=== PATIENT | female | born 1955 | race African-American/Black ===

== ENCOUNTER 2020-10-24 18:01 | Inpatient (IN) | payer OTHER ==
[~2020-10-24] VITALS: Ht 165.1 cm; Wt 111.5 kg
[2020-10-24] MEDS ORDERED: ALBUTEROL SULF 2.5 MG/0.5ML(0.5%) NEB SOLN NEB ONE (20:00)
[2020-10-24] MEDS ORDERED: IPRATROPIUM BROM 0.5 MG/2.5ML INH SOL NEB ONE (20:00)
[2020-10-24 21:53] LABS: Basophils # (auto) 0 10 ^3/uL (0-0.2); Basophils % (auto) 0.3 % (0.0-2.0); Eosinophils # (auto) 0 10 ^3/uL (0-0.8); Hematocrit 39.4 % (36.0-46.0); Hemoglobin 12.3 g/dL (12.2-16.2); Lymphocytes # (auto) 0.2 10 ^3/uL (0.4-5.4); Lymphocytes % (auto) 1.4 % (10.0-50.0); Mean Corpuscular Hgb Conc. 31.2 g/dL (32.0-36.0); Mean Corpuscular Volume 92.8 fL (80.0-100.0); Monocytes # (auto) 0.5 10 ^3/uL (0-1.3); Monocytes % (auto) 3.1 % (0.0-12.0); Neutrophils # (auto) 14.4 10 ^3/uL (1.6-8.6); Neutrophils % (auto) 95.2 % (37.0-80.0); Platelet Count (auto) 351 10^3/uL (140-450); Red Blood Cells 4.25 10^6/uL (4.0-5.20); White Blood Cell 15.1 10^3/uL (4.4-10.8)
[2020-10-24 22:14] LABS: Albumin 3.5 g/dL (3.4-5.0); Calcium 9.8 mg/dL (8.5-10.1); INR 0.98 (0.9-1.15); Partial Thromboplastin Time 23.5 sec (23.0-31.2)
[2020-10-24 22:19] LABS: BUN/Creatinine Ratio 28.1; Bilirubin, Total 0.2 mg/dL (0.2-1.0); Total Protein 7.8 g/dL (6.4-8.2)
[2020-10-25] MEDS ORDERED: methylPREDNISolone SOD SUCC 125 MG/2 ML VL IM ONE (01:00)
[2020-10-25] MEDS ORDERED: ENOXAPARIN SOD 100 MG/1 ML SYRINGE SC ONE (01:00)
[2020-10-25] MEDS ORDERED: MORPHINE SULF INJ 2 MG/ML SYRINGE 1ML IV PRN (07:30)
[2020-10-25] MEDS ORDERED: MORPHINE SULFATE 4 MG/ML SYR/VIAL IV PRN (07:30)
[2020-10-25] MEDS ORDERED: NITROGLYCERIN 0.4 MG SL TAB SL PRN (07:30)
[2020-10-25] MEDS ORDERED: HYDROcodone-ACET 5/325MG TAB PO PRN (07:30)
[2020-10-25] MEDS ORDERED: ACETAMINOPHEN 325 MG TAB PO PRN (07:30)
[2020-10-25] MEDS ORDERED: ONDANSETRON HCL 4 MG/2 ML VIAL IV PRN (07:30)
[2020-10-25] MEDS ORDERED: DOCUSATE SOD 100 MG CAP PO PRN (07:30)
[2020-10-25 08:54] LABS: Basophils # (auto) 0 10 ^3/uL (0-0.2); Basophils % (auto) 0.2 % (0.0-2.0); Eosinophils # (auto) 0 10 ^3/uL (0-0.8); Hematocrit 39.3 % (36.0-46.0); Hemoglobin 12.5 g/dL (12.2-16.2); Lymphocytes # (auto) 0.2 10 ^3/uL (0.4-5.4); Lymphocytes % (auto) 1.6 % (10.0-50.0); Mean Corpuscular Hemoglobin 29.5 pg (28.0-32.0); Mean Corpuscular Hgb Conc. 31.8 g/dL (32.0-36.0); Mean Corpuscular Volume 92.8 fL (80.0-100.0); Monocytes # (auto) 0.3 10 ^3/uL (0-1.3); Monocytes % (auto) 2.3 % (0.0-12.0); Neutrophils # (auto) 12.3 10 ^3/uL (1.6-8.6); Neutrophils % (auto) 95.9 % (37.0-80.0); Platelet Count (auto) 351 10^3/uL (140-450); Red Blood Cells 4.23 10^6/uL (4.0-5.20); Red Cell Distribution Width 15.3 % (11.8-14.3); White Blood Cell 12.9 10^3/uL (4.4-10.8)
[2020-10-25] MEDS ORDERED: IPRATROPIUM BROM 0.5 MG/2.5ML INH SOL ONE (09:00)
[2020-10-25 09:13] LABS: Albumin 3.6 g/dL (3.4-5.0); BUN/Creatinine Ratio 27.9; Calcium 9.2 mg/dL (8.5-10.1); Potassium 4.3 mmol/L (3.5-5.1)
[2020-10-25 09:16] LABS: Bilirubin, Total 0.2 mg/dL (0.2-1.0); Total Protein 7.7 g/dL (6.4-8.2)
[2020-10-25] MEDS: IPRATROPIUM BROM 0.5 MG/2.5ML INH SOL NEB SCH ×4 (09:20→21:48)
[2020-10-25] MEDS: FAMOTIDINE 20 MG TAB PO SCH ×2 (09:58→23:50)
[2020-10-25] MEDS: ALPRAZolam 0.25 MG TAB PO PRN ×2 (09:58→17:38)
[2020-10-25] MEDS: ASCORBIC ACID 500 MG TAB PO SCH ×2 (09:58→23:50)
[2020-10-25] MEDS: ZINC SULFATE 220mg CAP or TAB PO SCH (09:58)
[2020-10-25] MEDS: MULTIPLE VITAMIN TAB PO SCH (09:58)
[2020-10-25] MEDS ORDERED: ALBUTEROL SULF 2.5 MG/0.5ML(0.5%) NEB SOLN NEB SCH (10:00)
[2020-10-25] MEDS ORDERED: HEPARIN SODIUM (PORCINE) 5000 UNITS/ML 1ML VIAL SC SCH (10:00)
[2020-10-25 10:42] VITALS: BP 130/81
[2020-10-25] MEDS ORDERED: POTASSIUM CHLORIDE 8 MEQ TAB PO ONE (14:30)
[2020-10-25] MEDS ORDERED: FUROSEMIDE 40 MG TAB PO ONE (14:30)
[2020-10-25] MEDS ORDERED: AZITHROMYCIN 250 MG TAB PO ONE (14:30)
[2020-10-25] MEDS ORDERED: MONT4CHW9 PO (15:06)
[2020-10-25] MEDS ORDERED: PRED20TA2 PO (15:06)
[2020-10-25] MEDS ORDERED: PREG75CA PO (15:06)
[2020-10-25] MEDS ORDERED: OME20GT PO (15:06)
[2020-10-25] MEDS: methylPREDNISolone SOD SUCC 40 MG/ML VL IV SCH ×2 (15:08→23:50)
[2020-10-25] MEDS: ALBUTEROL SULF 2.5 MG/0.5ML(0.5%) NEB SOLN NEB PRN ×3 (15:10→21:48)
[2020-10-25] MEDS: SODIUM CHLOR 0.9% PF (SALINE LOCK) 10ML VIAL/SYR IV SCH (15:14)
[2020-10-25 17:00] VITALS: BP 147/85
[2020-10-25] MEDS: THROAT LOZENGES(CEPASTAT) MT PRN (17:38)
[2020-10-25 20:00] VITALS: BP 114/71
[2020-10-25 22:00] VITALS: BP 150/93
[2020-10-25] MEDS: ENOXAPARIN SOD 60 MG/0.6 ML SYRINGE SC SCH (23:50)
[2020-10-26] MEDS: IPRATROPIUM BROM 0.5 MG/2.5ML INH SOL NEB SCH ×6 (02:24→22:08)
[2020-10-26] MEDS: ALBUTEROL SULF 2.5 MG/0.5ML(0.5%) NEB SOLN NEB PRN ×5 (02:24→17:58)
[2020-10-26] MEDS: SODIUM CHLOR 0.9% PF (SALINE LOCK) 10ML VIAL/SYR IV SCH ×4 (02:25→22:29)
[2020-10-26 05:00] VITALS: BP 146/90
[2020-10-26] MEDS: methylPREDNISolone SOD SUCC 40 MG/ML VL IV SCH ×3 (06:07→22:28)
[2020-10-26] MEDS: ALPRAZolam 0.25 MG TAB PO PRN ×2 (06:08→20:06)
[2020-10-26 09:00] VITALS: BP 140/88
[2020-10-26 09:05] LABS: Basophils # (auto) 0 10 ^3/uL (0-0.2); Basophils % (auto) 0.1 % (0.0-2.0); Eosinophils # (auto) 0 10 ^3/uL (0-0.8); Hematocrit 39.4 % (36.0-46.0); Hemoglobin 12.6 g/dL (12.2-16.2); Lymphocytes # (auto) 0.4 10 ^3/uL (0.4-5.4); Lymphocytes % (auto) 4.1 % (10.0-50.0); Mean Corpuscular Hemoglobin 29.7 pg (28.0-32.0); Mean Corpuscular Hgb Conc. 32.1 g/dL (32.0-36.0); Mean Corpuscular Volume 92.7 fL (80.0-100.0); Monocytes # (auto) 0.8 10 ^3/uL (0-1.3); Monocytes % (auto) 7.6 % (0.0-12.0); Neutrophils # (auto) 9.4 10 ^3/uL (1.6-8.6); Neutrophils % (auto) 88.2 % (37.0-80.0); Nucleated Red Blood Cells % 0.1 %; Platelet Count (auto) 329 10^3/uL (140-450); Red Blood Cells 4.25 10^6/uL (4.0-5.20); Red Cell Distribution Width 15.1 % (11.8-14.3); White Blood Cell 10.6 10^3/uL (4.4-10.8)
[2020-10-26 09:31] LABS: Albumin 3.5 g/dL (3.4-5.0); Calcium 9.8 mg/dL (8.5-10.1); Potassium 3.9 mmol/L (3.5-5.1)
[2020-10-26 09:37] LABS: BUN/Creatinine Ratio 34.3; Bilirubin, Total 0.3 mg/dL (0.2-1.0); Total Protein 7.5 g/dL (6.4-8.2)
[2020-10-26] MEDS: FUROSEMIDE 20 MG TAB PO SCH (10:00)
[2020-10-26] MEDS: ZINC SULFATE 220mg CAP or TAB PO SCH (10:00)
[2020-10-26] MEDS: ENOXAPARIN SOD 60 MG/0.6 ML SYRINGE SC SCH ×2 (10:00→22:28)
[2020-10-26] MEDS: AZITHROMYCIN 250 MG TAB PO SCH (10:00)
[2020-10-26] MEDS: ASCORBIC ACID 500 MG TAB PO SCH ×2 (10:00→22:28)
[2020-10-26] MEDS: MULTIPLE VITAMIN TAB PO SCH (10:00)
[2020-10-26] MEDS: FAMOTIDINE 20 MG TAB PO SCH ×2 (10:00→22:28)
[2020-10-26] MEDS: POTASSIUM CHLORIDE 8 MEQ TAB PO SCH (10:00)
[2020-10-26 13:00] VITALS: BP 141/75
[2020-10-26 16:42] VITALS: BP 146/90
[2020-10-26 17:00] VITALS: BP 143/71
[2020-10-26] MEDS ORDERED: IPRATROPIUM BROM 0.5 MG/2.5ML INH SOL ONE (17:47)
[2020-10-26] MEDS ORDERED: ALBUTEROL SULF 2.5 MG/0.5ML(0.5%) NEB SOLN ONE (17:47)
[2020-10-26 22:00] VITALS: BP 146/83
[2020-10-27] MEDS: IPRATROPIUM BROM 0.5 MG/2.5ML INH SOL NEB SCH ×6 (02:06→22:39)
[2020-10-27 05:00] VITALS: BP 144/88
[2020-10-27 05:54] LABS: Basophils # (auto) 0 10 ^3/uL (0-0.2); Basophils % (auto) 0.1 % (0.0-2.0); Eosinophils # (auto) 0 10 ^3/uL (0-0.8); Hematocrit 40.4 % (36.0-46.0); Hemoglobin 12.8 g/dL (12.2-16.2); Lymphocytes # (auto) 0.2 10 ^3/uL (0.4-5.4); Lymphocytes % (auto) 2.1 % (10.0-50.0); Mean Corpuscular Hemoglobin 29.5 pg (28.0-32.0); Mean Corpuscular Hgb Conc. 31.8 g/dL (32.0-36.0); Mean Corpuscular Volume 92.9 fL (80.0-100.0); Monocytes # (auto) 0.1 10 ^3/uL (0-1.3); Monocytes % (auto) 1.1 % (0.0-12.0); Neutrophils # (auto) 9.9 10 ^3/uL (1.6-8.6); Neutrophils % (auto) 96.7 % (37.0-80.0); Platelet Count (auto) 330 10^3/uL (140-450); Red Blood Cells 4.35 10^6/uL (4.0-5.20); Red Cell Distribution Width 14.9 % (11.8-14.3); White Blood Cell 10.3 10^3/uL (4.4-10.8)
[2020-10-27] MEDS: methylPREDNISolone SOD SUCC 40 MG/ML VL IV SCH ×3 (06:13→21:54)
[2020-10-27] MEDS: SODIUM CHLOR 0.9% PF (SALINE LOCK) 10ML VIAL/SYR IV SCH ×3 (06:13→21:54)
[2020-10-27 06:18] LABS: BUN/Creatinine Ratio 35.6; Calcium 9.6 mg/dL (8.5-10.1); Potassium 4.3 mmol/L (3.5-5.1)
[2020-10-27] MEDS: ALBUTEROL SULF 2.5 MG/0.5ML(0.5%) NEB SOLN NEB PRN ×4 (06:38→22:40)
[2020-10-27 09:00] VITALS: BP 133/75
[2020-10-27] MEDS: MULTIPLE VITAMIN TAB PO SCH (10:17)
[2020-10-27] MEDS: ASCORBIC ACID 500 MG TAB PO SCH ×2 (10:17→21:54)
[2020-10-27] MEDS: FAMOTIDINE 20 MG TAB PO SCH ×2 (10:17→21:54)
[2020-10-27] MEDS: POTASSIUM CHLORIDE 8 MEQ TAB PO SCH (10:18)
[2020-10-27] MEDS: ZINC SULFATE 220mg CAP or TAB PO SCH (10:19)
[2020-10-27] MEDS: FUROSEMIDE 20 MG TAB PO SCH (10:19)
[2020-10-27] MEDS: AZITHROMYCIN 250 MG TAB PO SCH (10:19)
[2020-10-27] MEDS: ENOXAPARIN SOD 60 MG/0.6 ML SYRINGE SC SCH ×2 (10:19→21:54)
[2020-10-27] MEDS: ALPRAZolam 0.25 MG TAB PO PRN ×2 (10:22→20:35)
[2020-10-27] MEDS: THROAT LOZENGES(CEPASTAT) MT PRN ×2 (12:18→20:35)
[2020-10-27 16:39] VITALS: BP 140/79
[2020-10-27] MEDS: LORazepam 0.5 MG TAB PO PRN (16:45)
[2020-10-28] MEDS: ALBUTEROL SULF 2.5 MG/0.5ML(0.5%) NEB SOLN NEB PRN ×3 (01:49→14:16)
[2020-10-28] MEDS: IPRATROPIUM BROM 0.5 MG/2.5ML INH SOL NEB SCH ×4 (01:49→14:16)
[2020-10-28] MEDS: LORazepam 0.5 MG TAB PO PRN ×2 (03:40→11:13)
[2020-10-28] MEDS: THROAT LOZENGES(CEPASTAT) MT PRN (03:40)
[2020-10-28 05:00] VITALS: BP 149/92
[2020-10-28] MEDS: methylPREDNISolone SOD SUCC 40 MG/ML VL IV SCH (07:45)
[2020-10-28] MEDS: SODIUM CHLOR 0.9% PF (SALINE LOCK) 10ML VIAL/SYR IV SCH (07:45)
[2020-10-28 09:00] VITALS: BP 144/71
[2020-10-28 09:15] LABS: Basophils # (auto) 0.1 10 ^3/uL (0-0.2); Basophils % (auto) 0.6 % (0.0-2.0); Eosinophils # (auto) 0 10 ^3/uL (0-0.8); Hematocrit 42.3 % (36.0-46.0); Hemoglobin 13.5 g/dL (12.2-16.2); Lymphocytes # (auto) 0.4 10 ^3/uL (0.4-5.4); Lymphocytes % (auto) 2.7 % (10.0-50.0); Mean Corpuscular Hemoglobin 29.2 pg (28.0-32.0); Mean Corpuscular Volume 91.4 fL (80.0-100.0); Monocytes # (auto) 0.4 10 ^3/uL (0-1.3); Monocytes % (auto) 2.6 % (0.0-12.0); Neutrophils % (auto) 94.1 % (37.0-80.0); Platelet Count (auto) 374 10^3/uL (140-450); Red Blood Cells 4.63 10^6/uL (4.0-5.20); Red Cell Distribution Width 14.5 % (11.8-14.3); White Blood Cell 14.9 10^3/uL (4.4-10.8)
[2020-10-28 09:33] LABS: Potassium 4.2 mmol/L (3.5-5.1)
[2020-10-28 09:39] LABS: BUN/Creatinine Ratio 35.6; Calcium 9.7 mg/dL (8.5-10.1)
[2020-10-28] MEDS: ZINC SULFATE 220mg CAP or TAB PO SCH (11:05)
[2020-10-28] MEDS: ASCORBIC ACID 500 MG TAB PO SCH (11:06)
[2020-10-28] MEDS: AZITHROMYCIN 250 MG TAB PO SCH (11:06)
[2020-10-28] MEDS: FAMOTIDINE 20 MG TAB PO SCH (11:06)
[2020-10-28] MEDS: MULTIPLE VITAMIN TAB PO SCH (11:06)
[2020-10-28] MEDS: FUROSEMIDE 20 MG TAB PO SCH (11:06)
[2020-10-28] MEDS: POTASSIUM CHLORIDE 8 MEQ TAB PO SCH (11:07)
[2020-10-28] MEDS: ENOXAPARIN SOD 60 MG/0.6 ML SYRINGE SC SCH (11:07)
[2020-10-28 11:47] VITALS: BP 144/71
== END 2020-10-28 14:35 | disposition home or self-care (01) | DRG 280 ==
LOC: EDBD 18:01 → ER 18:01 → TELE 18:02 → TELE-WESTW 10-25 12:31
PROVIDERS: ADMIT Nurse Practitioner Family; ATTEND Internal Medicine
PROC: 5A09357 Assistance with Respiratory Ventilation, Less than 24 Consecutive Hours, Continuous Positive Airway Pressure (ICD-10-PCS; principal; 2020-10-26)
DX: I21.4 Non-ST elevation (NSTEMI) myocardial infarction (principal); J96.21 Acute and chronic respiratory failure with hypoxia; N17.0 Acute kidney failure with tubular necrosis; J45.901 Unspecified asthma with (acute) exacerbation; J44.1 Chronic obstructive pulmonary disease with (acute) exacerbation; E66.2 Morbid (severe) obesity with alveolar hypoventilation; Z68.41 Body mass index [BMI] 40.0-44.9, adult; J44.0 Chronic obstructive pulmonary disease with (acute) lower respiratory infection; D72.829 Elevated white blood cell count, unspecified; J20.9 Acute bronchitis, unspecified; N18.9 Chronic kidney disease, unspecified; E78.5 Hyperlipidemia, unspecified; I12.9 Hypertensive chronic kidney disease with stage 1 through stage 4 chronic kidney disease, or unspecified chronic kidney disease; F17.210 Nicotine dependence, cigarettes, uncomplicated; Z20.828 Contact with and (suspected) exposure to other viral communicable diseases; Z80.0 Family history of malignant neoplasm of digestive organs; Z91.040 Latex allergy status; Z79.899 Other long term (current) drug therapy
CPT/HCPCS: 36415; 36600; 71045; 71250; 80048; 80053; 82805; 83036; 83880; 84443; 84484; 85025; 85379; 85610; 85730; 87070; 87081; 87205; 93005; 94640; 94660; 96372; G0378

== ENCOUNTER 2020-11-21 13:13 | Inpatient (IN) | payer OTHER ==
[~2020-11-21] VITALS: Ht 165.1 cm; Wt 127.0 kg
[~2020-11-21 13:13] MED LIST: MONT4CHW9 PO; OME20GT PO; PRED20TA2 PO; PREG75CA PO
[2020-11-21 14:48] LABS: Basophils # (auto) 0.1 10 ^3/uL (0-0.2); Basophils % (auto) 0.7 % (0.0-2.0); Eosinophils # (auto) 0.1 10 ^3/uL (0-0.8); Eosinophils % (auto) 1.4 % (0.0-7.0); Hematocrit 35.1 % (36.0-46.0); Hemoglobin 11.6 g/dL (12.2-16.2); Lymphocytes # (auto) 0.7 10 ^3/uL (0.4-5.4); Lymphocytes % (auto) 6.2 % (10.0-50.0); Mean Corpuscular Hemoglobin 29.8 pg (28.0-32.0); Mean Corpuscular Hgb Conc. 33.1 g/dL (32.0-36.0); Monocytes # (auto) 0.8 10 ^3/uL (0-1.3); Monocytes % (auto) 7.7 % (0.0-12.0); Neutrophils # (auto) 8.8 10 ^3/uL (1.6-8.6); Nucleated Red Blood Cells % 0.2 %; Platelet Count (auto) 440 10^3/uL (140-450); Red Cell Distribution Width 15.1 % (11.8-14.3); White Blood Cell 10.5 10^3/uL (4.4-10.8)
[2020-11-21 15:02] LABS: Albumin 3.1 g/dL (3.4-5.0); BUN/Creatinine Ratio 14.9; Calcium 9.8 mg/dL (8.5-10.1); Potassium 3.2 mmol/L (3.5-5.1)
[2020-11-21 15:11] LABS: Bilirubin, Total 0.6 mg/dL (0.2-1.0); Total Protein 8.1 g/dL (6.4-8.2)
[2020-11-21 15:26] LABS: INR 1.07 (0.9-1.15); Partial Thromboplastin Time 27.9 sec (23.0-31.2)
[2020-11-21] MEDS ORDERED: ASPirin-EC 81 mg tab PO ONE (16:45)
[2020-11-21] MEDS ORDERED: DexAMETHasone SOD PHOS 10MG/1ML VIAL INJ IV ONE (16:45)
[2020-11-21] MEDS ORDERED: AZITHROMYCIN 500MG/ 250ML 250 ML IV ONE (16:45)
[2020-11-21] MEDS ORDERED: POTASSIUM CHL 20 Meq TABLET PO ONE (16:45)
[2020-11-21] MEDS ORDERED: IPRATROPIUM BROM 0.5 MG/2.5ML INH SOL NEB STA (21:19)
[2020-11-21] MEDS ORDERED: ALBUTEROL SULF 2.5 MG/0.5ML(0.5%) NEB SOLN NEB STA (21:19)
[2020-11-21] MEDS ORDERED: methylPREDNISolone SOD SUCC 125 MG/2 ML VL IV ONE (21:30)
[2020-11-21] MEDS: ASCORBIC ACID 500 MG TAB PO SCH (22:00)
[2020-11-21] MEDS ORDERED: ACETAMINOPHEN 325 MG TAB PO PRN (22:00)
[2020-11-21] MEDS: IPRATROPIUM BROM 0.5 MG/2.5ML INH SOL NEB SCH (22:00)
[2020-11-21] MEDS: methylPREDNISolone SOD SUCC 40 MG/ML VL IV SCH (22:00)
[2020-11-21] MEDS ORDERED: NITROGLYCERIN 0.4 MG SL TAB SL PRN (22:00)
[2020-11-21] MEDS ORDERED: DOCUSATE SOD 100 MG CAP PO PRN (22:00)
[2020-11-21] MEDS ORDERED: MORPHINE SULFATE 4 MG/ML SYR/VIAL IV PRN (22:00)
[2020-11-21] MEDS ORDERED: FAMOTIDINE (10MG/ML) 2ML VL IV SCH (22:00)
[2020-11-21] MEDS ORDERED: MORPHINE SULF INJ 2 MG/ML SYRINGE 1ML IV PRN (22:00)
[2020-11-21] MEDS: ALBUTEROL SULF 2.5 MG/0.5ML(0.5%) NEB SOLN NEB SCH (22:00)
[2020-11-21] MEDS ORDERED: ONDANSETRON HCL 4 MG/2 ML VIAL IV PRN (22:00)
[2020-11-21] MEDS: SODIUM CHLOR 0.9% PF (SALINE LOCK) 10ML VIAL/SYR IV SCH (22:18)
[2020-11-21] MEDS: HEPARIN SODIUM (PORCINE) 5000 UNITS/ML 1ML VIAL SC SCH (22:45)
[2020-11-22] MEDS: methylPREDNISolone SOD SUCC 40 MG/ML VL IV SCH ×3 (06:00→23:52)
[2020-11-22] MEDS: SODIUM CHLOR 0.9% PF (SALINE LOCK) 10ML VIAL/SYR IV SCH ×3 (06:00→23:52)
[2020-11-22] MEDS: IPRATROPIUM BROM 0.5 MG/2.5ML INH SOL NEB SCH ×5 (06:20→22:00)
[2020-11-22] MEDS: ALBUTEROL SULF 2.5 MG/0.5ML(0.5%) NEB SOLN NEB SCH ×5 (06:20→22:00)
[2020-11-22 07:25] LABS: Basophils # (auto) 0 10 ^3/uL (0-0.2); Basophils % (auto) 0.1 % (0.0-2.0); Eosinophils # (auto) 0 10 ^3/uL (0-0.8); Hematocrit 33.6 % (36.0-46.0); Hemoglobin 11.1 g/dL (12.2-16.2); Lymphocytes # (auto) 0.3 10 ^3/uL (0.4-5.4); Lymphocytes % (auto) 4.9 % (10.0-50.0); Mean Corpuscular Hemoglobin 29.5 pg (28.0-32.0); Mean Corpuscular Volume 89.5 fL (80.0-100.0); Monocytes # (auto) 0.1 10 ^3/uL (0-1.3); Monocytes % (auto) 1.2 % (0.0-12.0); Neutrophils # (auto) 5.8 10 ^3/uL (1.6-8.6); Neutrophils % (auto) 93.8 % (37.0-80.0); Nucleated Red Blood Cells % 0.1 %; Platelet Count (auto) 416 10^3/uL (140-450); Red Blood Cells 3.76 10^6/uL (4.0-5.20); Red Cell Distribution Width 15.2 % (11.8-14.3); White Blood Cell 6.2 10^3/uL (4.4-10.8)
[2020-11-22 07:41] LABS: Albumin 2.9 g/dL (3.4-5.0); BUN/Creatinine Ratio 16.5; Potassium 3.7 mmol/L (3.5-5.1)
[2020-11-22 08:06] LABS: Bilirubin, Total 0.5 mg/dL (0.2-1.0); Calcium 9.1 mg/dL (8.5-10.1); Total Protein 7.8 g/dL (6.4-8.2)
[2020-11-22] MEDS: ASPirin 81 mg TAB PO SCH (10:17)
[2020-11-22] MEDS: AZITHROMYCIN 500MG/ 250ML 250 ML IV SCH (10:17)
[2020-11-22] MEDS: ZINC SULFATE 220mg CAP or TAB PO SCH (10:18)
[2020-11-22] MEDS: MULTIPLE VITAMIN TAB PO SCH (10:18)
[2020-11-22] MEDS: ASCORBIC ACID 500 MG TAB PO SCH ×2 (10:18→23:51)
[2020-11-22] MEDS: HEPARIN SODIUM (PORCINE) 5000 UNITS/ML 1ML VIAL SC SCH ×2 (10:19→22:00)
[2020-11-22] MEDS: HYDROcodone-ACET 5/325MG TAB PO PRN ×2 (17:06→23:53)
[2020-11-22] MEDS: PREGABALIN CAPSULE 75 MG CAP PO SCH (23:52)
[2020-11-23] MEDS: ALBUTEROL SULF 2.5 MG/0.5ML(0.5%) NEB SOLN NEB SCH ×3 (02:00→10:00)
[2020-11-23] MEDS: IPRATROPIUM BROM 0.5 MG/2.5ML INH SOL NEB SCH ×3 (02:00→10:00)
[2020-11-23] MEDS: SODIUM CHLOR 0.9% PF (SALINE LOCK) 10ML VIAL/SYR IV SCH (06:00)
[2020-11-23] MEDS: methylPREDNISolone SOD SUCC 40 MG/ML VL IV SCH (06:00)
[2020-11-23 06:46] LABS: Basophils # (auto) 0 10 ^3/uL (0-0.2); Basophils % (auto) 0.1 % (0.0-2.0); Eosinophils # (auto) 0 10 ^3/uL (0-0.8); Hematocrit 31.6 % (36.0-46.0); Hemoglobin 10.6 g/dL (12.2-16.2); Lymphocytes # (auto) 0.3 10 ^3/uL (0.4-5.4); Lymphocytes % (auto) 3.3 % (10.0-50.0); Mean Corpuscular Hemoglobin 29.9 pg (28.0-32.0); Mean Corpuscular Hgb Conc. 33.6 g/dL (32.0-36.0); Mean Corpuscular Volume 89.1 fL (80.0-100.0); Monocytes # (auto) 0.3 10 ^3/uL (0-1.3); Monocytes % (auto) 2.5 % (0.0-12.0); Neutrophils # (auto) 9.6 10 ^3/uL (1.6-8.6); Neutrophils % (auto) 94.1 % (37.0-80.0); Platelet Count (auto) 414 10^3/uL (140-450); Red Blood Cells 3.55 10^6/uL (4.0-5.20); Red Cell Distribution Width 15.1 % (11.8-14.3); White Blood Cell 10.1 10^3/uL (4.4-10.8)
[2020-11-23 07:04] LABS: Calcium 9.3 mg/dL (8.5-10.1); Potassium 3.9 mmol/L (3.5-5.1)
[2020-11-23] MEDS: ASPirin 81 mg TAB PO SCH (10:00)
[2020-11-23] MEDS: ZINC SULFATE 220mg CAP or TAB PO SCH (10:00)
[2020-11-23] MEDS: HEPARIN SODIUM (PORCINE) 5000 UNITS/ML 1ML VIAL SC SCH (10:00)
[2020-11-23] MEDS ORDERED: PANTOPRAZOLE 40 MG TAB PO SCH (10:00)
[2020-11-23] MEDS ORDERED: methylPREDNISolone SOD SUCC 125 MG/2 ML VL IV ONE (10:00)
[2020-11-23] MEDS: MULTIPLE VITAMIN TAB PO SCH (10:00)
[2020-11-23] MEDS: ASCORBIC ACID 500 MG TAB PO SCH (10:00)
[2020-11-23] MEDS: AZITHROMYCIN 500MG/ 250ML 250 ML IV SCH (10:00)
[2020-11-23] MEDS: HYDROcodone-ACET 5/325MG TAB PO PRN (11:33)
[2020-11-23] MEDS: PREGABALIN CAPSULE 75 MG CAP PO SCH (11:33)
[2020-11-23 12:00] VITALS: BP 120/83
== END 2020-11-23 12:44 | disposition home or self-care (01) | DRG 193 ==
LOC: ER 13:13 → EDBD 13:13 → TELE 13:14
PROVIDERS: ADMIT Nurse Practitioner Family; ATTEND Nurse Practitioner Family
DX: J15.9 Unspecified bacterial pneumonia (principal); J96.21 Acute and chronic respiratory failure with hypoxia; J96.22 Acute and chronic respiratory failure with hypercapnia; J44.1 Chronic obstructive pulmonary disease with (acute) exacerbation; N17.9 Acute kidney failure, unspecified; E87.0 Hyperosmolality and hypernatremia; Z68.42 Body mass index [BMI] 45.0-49.9, adult; J44.0 Chronic obstructive pulmonary disease with (acute) lower respiratory infection; E78.5 Hyperlipidemia, unspecified; E66.01 Morbid (severe) obesity due to excess calories; E87.6 Hypokalemia; F17.210 Nicotine dependence, cigarettes, uncomplicated; G62.9 Polyneuropathy, unspecified; I12.9 Hypertensive chronic kidney disease with stage 1 through stage 4 chronic kidney disease, or unspecified chronic kidney disease; N18.30 Chronic kidney disease, stage 3 unspecified; Z20.828 Contact with and (suspected) exposure to other viral communicable diseases; Z80.0 Family history of malignant neoplasm of digestive organs; Z99.81 Dependence on supplemental oxygen; Z91.040 Latex allergy status
CPT/HCPCS: 36415; 71045; 80048; 80053; 83605; 83735; 84484; 85025; 85610; 85730; 87040; 87426; 93005; 94640; 96365; 96366; 96375; 99291; G0378; J1100; J3490